=== PATIENT | male | born 1975 | race Caucasian/White ===

== ENCOUNTER 2023-03-22 20:10 | Emergency (ER) | payer BC | END 2023-03-22 22:25 | disposition home or self-care (01) | LOC: JD.ED 20:10 | DX: R60.9 Edema, unspecified (principal) | CPT/HCPCS: 93971-26-LT; 93971-LT; 99283 ==

== ENCOUNTER 2023-10-13 19:21 | Emergency (ER) | payer BC, MEDICAID ==
[2023-10-13] MEDS: Ketorolac 30 MG/ML SDV IM ONE (20:30)
== END 2023-10-13 22:42 | disposition home or self-care (01) ==
LOC: JD.ED 19:21
DX: R07.81 Pleurodynia (principal); E66.9 Obesity, unspecified; Z95.0 Presence of cardiac pacemaker; Z86.16 Personal history of COVID-19; Z79.899 Other long term (current) drug therapy; V80.010A Animal-rider injured by fall from or being thrown from horse in noncollision accident, initial encounter
CPT/HCPCS: 71101; 93005; 96372; 99285; J1885

== ENCOUNTER 2023-10-25 21:54 | Emergency (ER) | payer MEDICAID ==
[2023-10-25] MEDS: Sodium Chloride 0.9% 10 ML Syringe FLUSH PRN (22:30)
[2023-10-25 22:34] LABS: BASOPHILS ABSOLUTE AUTO 0.1 K/mm3 (0.0-0.2); BASOPHILS PERCENT AUTO 0.9 % (0.0-1.0); EOSINOPHILS ABSOLUTE AUTO 0.1 K/mm3 (0.0-0.4); EOSINOPHILS PERCENT AUTO 2.1 % (0.0-6.0); HEMATOCRIT 32.2 % (42.0-52.0); HEMOGLOBIN 10.8 gm/dl (14.0-18.0); IMMATURE GRAN ABSOLUTE AUTO 0.01 K/mm3 (0.00-0.05); IMMATURE GRAN PERCENT AUTO 0.2 % (0.0-0.4); LYMPHOCYTES ABSOLUTE AUTO 2.4 K/mm3 (1.0-4.8); LYMPHOCYTES PERCENT AUTO 44.9 % (24.0-44.0); MEAN CORPUSCULAR HEMOGLOBIN 27.7 pg (28.0-32.0); MEAN CORPUSCULAR HGB CONC 33.5 g/dl (32.0-36.0); MEAN CORPUSCULAR VOLUME 82.6 fl (83.0-99.0); MEAN PLATELET VOLUME 10.6 fl (9.4-12.4); MONOCYTES ABSOLUTE AUTO 0.3 K/mm3 (0.0-0.8); MONOCYTES PERCENT AUTO 5.8 % (0.0-8.0); NEUTROPHILS ABSOLUTE AUTO 2.5 K/mm3 (1.8-7.7); NEUTROPHILS PERCENT AUTO 46.1 % (41.0-71.0); PLATELET COUNT,PLT 180 K/mm3 (150-400); WHITE BLOOD CELL COUNT,WBC 5.35 K/mm3 (3.9-11.3)
[2023-10-25 23:02] LABS: APPEARANCE,URINE CLEAR (Clear); BILIRUBIN,URINE NEGATIVE (Negative); COLOR,URINE YELLOW (Yellow); GLUCOSE,URINE NEGATIVE (Negative); KETONES,URINE NEGATIVE (Negative); LEUKOCYTE ESTERASE,URINE NEGATIVE (Negative); NITRITE,URINE NEGATIVE (Negative); OCCULT BLOOD,URINE NEGATIVE (Negative); PROTEIN,URINE NEGATIVE (Negative); UROBILINOGEN,URINE 0.2 (0.2-1.0)
[2023-10-25 23:08] LABS: A/G RATIO 1.2 (1-2); ALBUMIN 3.9 g/dl (3.4-5.0); ANION GAP 10.6 (5-15); BILIRUBIN TOTAL 0.4 mg/dL (0.2-1.0); BUN/CREATININE RATIO 11.1 (14-18); C-REACTIVE PROTEIN 1.16 mg/dL (<0.30); CALCIUM 8.3 mg/dL (8.5-10.1); CREATININE 1.8 mg/dL (0.7-1.3); EST CRCL DRUG DOSING (CG) 56.72 mL/min; MAGNESIUM 1.8 mg/dL (1.8-2.4); POTASSIUM,K 2.6 mEq/L (3.5-5.1); PROTEIN TOTAL,TP 7.1 g/dl (6.4-8.2)
[2023-10-25 23:09] LABS: T4 FREE 0.98 ng/dL (0.76-1.46); TSH 0.949 uIU/mL (0.358-3.74)
[2023-10-25 23:18] LABS: CORONAVIRUS COVID-19 NAA NEGATIVE (NEGATIVE); INFLUENZA A NAA NEGATIVE (NEGATIVE); RESPIRATORY SYNCYTIAL VIR NAA NEGATIVE (NEGATIVE)
[2023-10-25] MEDS ORDERED: Sodium Chloride 0.9% 0 ML ONE (23:58)
[2023-10-26] MEDS: Potassium Chloride 10 MEQ in Premix Bag 1 BAG IV SCH (00:06)
[2023-10-26] MEDS: Potassium Chloride 20 MEQ Tab.ER PO ONE (00:06)
[2023-10-26] MEDS: Ketorolac 30 MG/ML SDV IVPUSH ONE (00:07)
[2023-10-26] MEDS: Sodium Chloride 0.9% 100 ML IV SCH (00:11)
[2023-10-26] MEDS: Sodium Chloride 0.9% 10 ML Syringe FLUSH ONE (00:11)
[2023-10-26] MEDS: Iopamidol 755 Mg/ML 100 ML Bottle IVPUSH ONE (00:11)
== END 2023-10-26 04:51 | disposition home or self-care (01) ==
LOC: JD.ED 21:54
DX: J21.9 Acute bronchiolitis, unspecified (principal); E87.6 Hypokalemia; R79.89 Other specified abnormal findings of blood chemistry; R79.82 Elevated C-reactive protein (CRP); E66.9 Obesity, unspecified; F17.210 Nicotine dependence, cigarettes, uncomplicated; Z86.16 Personal history of COVID-19; Z90.49 Acquired absence of other specified parts of digestive tract; Z95.0 Presence of cardiac pacemaker; Z79.899 Other long term (current) drug therapy; Z68.32 Body mass index [BMI] 32.0-32.9, adult
CPT/HCPCS: 0241U; 36415; 71046; 71046-26; 71275; 71275-26; 74177; 74177-26; 80053; 81003; 83735; 84439; 84443; 84484; 85025; 85379; 86140; 93005; 93010; 96365; 96366; 96375; 99284; 99285-25; A9270-GY; J1885; J3480; J3490; Q9967